=== PATIENT | male | born 1955 | race Caucasian/White ===

== ENCOUNTER 2021-02-07 07:25 | Day surgery (SDC) | payer MEDICARE ==
[~2021-02-07] VITALS: Ht 175.3 cm; Wt 57.3 kg
[2021-02-07] MEDS ORDERED: ASPIRIN 32325 MG/TAB PO (08:22)
[2021-02-07] MEDS ORDERED: [UNRECOGNIZED DRUG - OTHER] PO (08:23)
[2021-02-07] MEDS ORDERED: [UNRECOGNIZED DRUG - REMARK] PO (08:23)
[2021-02-07] MEDS ORDERED: PRIL40 PO (08:24)
[2021-02-07] MEDS ORDERED: SPIRIVA RE2.5 MCG/Ac IH (08:25)
[2021-02-07 08:41] VITALS: BP 124/59; PULSE 69; TEMP 98.5
[2021-02-07 09:38] VITALS: BP 137/77; PULSE 68; TEMP 97.6
[2021-02-07 10:00] VITALS: BP 131/74; PULSE 66
--- NOTE | 2021-02-07 10:05 | NUR ---
0935 Pt arrives back in [facility] [place] [facility] following endo procedure. Pt alert and oriented. Monitors on and alarms set. Call light within reach. Son present in room. Pt refuses food or drink mainly due to his existing condition which makes it very difficult to swallow anything. Pt has no complaints and is very ready to get out of the hospital to go smoke a cigarette. 0953 Pt continues to have no complaints. Discharge instructions reviewed with pt and son. All questions answered to their satisfaction. 1005 Pt transferred out of hospital via wheelchair and this RN with son accompanying to private vehicle driven by son.
== END 2021-02-07 10:05 | disposition home or self-care (01) ==
LOC: SDCO 07:25
DX: C15.9 Malignant neoplasm of esophagus, unspecified (principal); K21.9 Gastro-esophageal reflux disease without esophagitis; G89.29 Other chronic pain; M54.9 Dorsalgia, unspecified; M54.2 Cervicalgia; J43.9 Emphysema, unspecified; F17.210 Nicotine dependence, cigarettes, uncomplicated; Z79.82 Long term (current) use of aspirin; Z20.822 Contact with and (suspected) exposure to COVID-19; Z79.899 Other long term (current) drug therapy
CPT/HCPCS: J2704; J7120

== ENCOUNTER 2021-07-28 09:19 | Day surgery (SDC) | payer MEDICARE ==
[~2021-07-28] VITALS: Ht 175.3 cm; Wt 56.5 kg
[~2021-07-28 09:19] MED LIST: ASPIRIN 32325 MG/TAB PO; PRIL40 PO; SPIRIVA RE2.5 MCG/Ac IH; [UNRECOGNIZED DRUG - OTHER] PO; [UNRECOGNIZED DRUG - REMARK] PO
[2021-07-28 10:05] VITALS: BP 144/78; PULSE 87; TEMP 97.7
[2021-07-28] MEDS ORDERED: VITAMIN C500 MG PO (10:26)
[2021-07-28 11:30] VITALS: BP 123/74; PULSE 91; TEMP 97.3
[2021-07-28 11:45] VITALS: BP 133/81; PULSE 76
[2021-07-28 12:00] VITALS: BP 141/77; PULSE 72
--- NOTE | 2021-07-28 12:05 | NUR ---
1130- Pt returns from endo procedure via cart to [place] [facility]. Pt ambulates from cart to recliner with RN assist. Monitors on and alarms set. Call light within reach. Pt alert and oriented. Pt requests water, on clear liquid diet for [address] Vargas . Pt denies any pain or nausea. 1145- Pt taking drink well. No complications noted. 1200-Dr in to speak with patient. Discharge instructions given to pt. All questions answered to pt and family member satisfaction. Handed to pt education material and discharge information. 1205- Pt transferred out of the hospital via wheelchair, to private vehicle driven by family member.
== END 2021-07-28 12:05 | disposition home or self-care (01) ==
LOC: SDCO 09:19
DX: K22.2 Esophageal obstruction (principal); C15.9 Malignant neoplasm of esophagus, unspecified; J43.9 Emphysema, unspecified; M19.90 Unspecified osteoarthritis, unspecified site; F17.210 Nicotine dependence, cigarettes, uncomplicated; K21.9 Gastro-esophageal reflux disease without esophagitis; Z92.3 Personal history of irradiation; Z79.82 Long term (current) use of aspirin; Z79.899 Other long term (current) drug therapy; Z92.21 Personal history of antineoplastic chemotherapy
CPT/HCPCS: C1726; J2704; J7030

== ENCOUNTER 2021-09-08 09:46 | Day surgery (SDC) | payer MEDICARE ==
[~2021-09-08] VITALS: Ht 175.3 cm; Wt 59.1 kg
[~2021-09-08 09:46] MED LIST changes: +VITAMIN C500 MG PO
[2021-09-08 10:02] VITALS: BP 138/75; PULSE 71; TEMP 97.9
[2021-09-08] MEDS ORDERED: ZYRTEC 10MG10 MG PO (10:10)
[2021-09-08 11:35] VITALS: BP 118/84; PULSE 78; TEMP 97.2
--- NOTE | 2021-09-08 11:35 | NUR ---
1135- PATIENT JEROME BACK TO ENDO ROOM 3 VIA CART. AMBULATED TO CHAIR WITHOUT DIFFICULTY. IV INFUSING WITHOUT DIFFICULTY. SON AT BEDSIDE TO DRIVE PATIENT HOME. PLACED ON MONITORS, VITAL SIGNS STABLE. HOANG RN AT BEDSIDE FOR REPORT. PATIENT STATES HE DOES NOT WANT A DRINK OR FOOD. STATES HE DOES NOT WANT TO STAY ANY LONGER. ENCOURAGED TO STAY TO SPEAK WITH MD. CALL LOVELL WITHIN REACH, WARM BLANEKT PROVIDED. WILL MONITOR. 1150- VITAL SIGNS STABLE. IV REMOVED. PATIENT TO GET DRESSED AT THIS TIME. WAITING TO SPEAK WITH MD.
[2021-09-08 11:50] VITALS: BP 125/71; PULSE 70
[2021-09-08 12:05] VITALS: BP 140/72; PULSE 67
--- NOTE | 2021-09-08 12:15 | NUR ---
DISCHARGE INSTRUCTIONS REVIEWED WITH PATIENT AND SON. DR. LEIJA AT BEDSIDE TO EXPLAIN RESULTS. PATIENT READY TO GO HOME. ANGIE MCDUFFIE TO BRING PATIENT DOWN TO LOBBY VIA WHEEL CHAIR. SON NIKKI TO DRIVE PATIENT HOME. ALL BELONGINGS IN HAND.
== END 2021-09-08 12:15 | disposition home or self-care (01) ==
LOC: SDCO 09:46
DX: K22.2 Esophageal obstruction (principal); J44.9 Chronic obstructive pulmonary disease, unspecified; M19.90 Unspecified osteoarthritis, unspecified site; G89.29 Other chronic pain; M54.9 Dorsalgia, unspecified; F17.210 Nicotine dependence, cigarettes, uncomplicated; Z85.01 Personal history of malignant neoplasm of esophagus; Z79.82 Long term (current) use of aspirin
CPT/HCPCS: C1726; J2704; J7030

== ENCOUNTER 2022-02-09 13:50 | Day surgery (SDC) | payer MEDICARE ==
[~2022-02-09] VITALS: Ht 175.3 cm; Wt 57.4 kg
[~2022-02-09 13:50] MED LIST changes: +ZYRTEC 10MG10 MG PO
[2022-02-09 14:27] VITALS: BP 134/84; PULSE 87; TEMP 97.8
[2022-02-09] MEDS ORDERED: TYLENOL 500MG500 MG PO (14:45)
[2022-02-09] MEDS ORDERED: PROTONIX 40MG T40 MG PO (14:46)
--- NOTE | 2022-02-09 15:15 | NUR ---
Pt arrived from procedure, drowsy but oriented. Pt was assisted from cart to chair with minimal difficulty. Monitors applied and VSS. Verbal room report obtained. Pt provided water without ice and crackers. Call mancuso is within reach. Visitor present.
[2022-02-09 15:30] VITALS: BP 131/81; PULSE 79
--- NOTE | 2022-02-09 15:30 | NUR ---
VSS. Pt expressed desire to be discharged. Pt is tolerating water and crackers, denies nausea. No vomiting. Call mancuso remains within reach.
[2022-02-09 15:45] VITALS: BP 135/83; PULSE 78
--- NOTE | 2022-02-09 15:45 | NUR ---
VSS. IV discontinued catheter tip intact. No redness or swelling noted. Pressure dressing applied. DC instructions and educational material reviewed with the pt, who verbalized understanding and signed the related paperwork. Pt denied needing help changing into personal clothes. Pt then dismissed from endo via wheelchair to pt entrence and was transferred into the care of his son, who is present to drive private car.
== END 2022-02-09 16:00 | disposition home or self-care (01) ==
LOC: SDCO 13:50
DX: K22.2 Esophageal obstruction (principal); F17.210 Nicotine dependence, cigarettes, uncomplicated
CPT/HCPCS: C1726; J2704; J3301; J7030

== ENCOUNTER → 2022-03-23 | Day surgery (SDC) | payer MEDICARE ==
[~2022-03-23] VITALS: Ht 175.3 cm; Wt 56.2 kg
[~2022-03-23] MED LIST changes: +PROTONIX 40MG T40 MG PO; +TYLENOL 500MG500 MG PO
[2022-03-23 13:14] VITALS: BP 129/84; PULSE 71; TEMP 97.7
[2022-03-23 15:05] VITALS: BP 131/83; PULSE 63; TEMP 97.7
[2022-03-23 15:20] VITALS: BP 116/83; PULSE 63
--- NOTE | 2022-03-23 15:21 | NUR ---
1505 - PT arrives from procedure, drowsy but oriented. PT assisted with ambulating from cart to chair 2:1. Monitors applied and VSS. Warm blankets applied. Verbal room report obtained from Marybeth MCDUFFIE; per report: PT on clear liquid diet for today, to transition to soft diet as tolerated tomorrow. Water without ice provided per request. PT oriented to room and call mancuso, within reach. PT denies nausea and pain. Visitor is present. 1520 - VSS. Call mancuso remains within reach. PT expressed desire to be discharged. PT continues to drink is water.
== END ==
LOC: SDCO 11:41
DX: K22.2 Esophageal obstruction (principal); F17.210 Nicotine dependence, cigarettes, uncomplicated
CPT/HCPCS: C1726; J2704; J3301; J7030

== ENCOUNTER 2022-06-01 09:20 | Day surgery (SDC) | payer MEDICARE ==
[~2022-06-01] VITALS: Ht 175.3 cm; Wt 57.6 kg
[2022-06-01 10:05] VITALS: BP 139/84; PULSE 69; TEMP 97.4
[2022-06-01 11:25] VITALS: BP 100/78; PULSE 83; TEMP 97.9
[2022-06-01 11:40] VITALS: BP 97/82; PULSE 86
[2022-06-01 11:55] VITALS: BP 107/78; PULSE 73
== END 2022-06-01 12:05 | disposition home or self-care (01) ==
LOC: SDCO 09:20
DX: K22.2 Esophageal obstruction (principal); F17.210 Nicotine dependence, cigarettes, uncomplicated; K21.9 Gastro-esophageal reflux disease without esophagitis; Z28.311 Partially vaccinated for COVID-19; Z85.01 Personal history of malignant neoplasm of esophagus
CPT/HCPCS: C1726; J2704; J3301; J7030

== ENCOUNTER 2022-11-08 12:23 | Day surgery (SDC) | payer MEDICARE ==
[~2022-11-08] VITALS: Ht 175.3 cm; Wt 62.3 kg
[2022-11-08 13:08] VITALS: BP 161/94; PULSE 100; TEMP 97.3
[2022-11-08 14:25] VITALS: BP 155/84; PULSE 82; TEMP 97.3
[2022-11-08 14:40] VITALS: BP 127/96; PULSE 78
[2022-11-08 14:50] VITALS: BP 123/90; PULSE 78
--- NOTE | 2022-11-08 14:55 | NUR ---
1425 RETURNS TO ROOM 7 PER CART. AWAKE, ALERT. RESP UNLABORED/ AMBULATES TO RECLINER WITH STANDBY ASSIST. DENIES NAUSEA, ABD/CHEST PAIN OR DYSPHAGIA. VITAL SIGNS OBTAINED. CALL LIGHT AT SIDE. FRIEND IN ROOM 1440 TOLERATES WATER WITHOUT NAUSEA. SWALLOWS WITHOUT DIFFICULTY 1445 DISCHARGE INSTRUCTIONS REVIEWED. PATIENT VERBALIZES UNDERSTANDING. COPY PROVIDED IN DISCHARGE FOLDER
== END 2022-11-08 14:55 | disposition home or self-care (01) ==
LOC: SDCO 12:23
DX: K22.2 Esophageal obstruction (principal); F17.210 Nicotine dependence, cigarettes, uncomplicated; Z85.01 Personal history of malignant neoplasm of esophagus
CPT/HCPCS: C1726; J2704; J3301; J7120

== ENCOUNTER 2022-11-22 13:05 | Day surgery (SDC) | payer MEDICARE ==
[~2022-11-22] VITALS: Ht 175.3 cm; Wt 62.6 kg
[2022-11-22 14:50] VITALS: BP 125/78; PULSE 93; TEMP 98
--- NOTE | 2022-11-22 15:10 | NUR ---
1450-PT TO BAY 5 PER CART FROM ENDO PROCEDURE ROOM. REPORT RECEIVED. VS OBTAINED. PT DENIES ANY NEEDS AT THIS TIME. CALL LIGHT WITHIN REACH. 1455-IV DC'D AT THIS TIME. PT DRESSED HIMSELF WITHOUT ANY ASSISTANCE. 1500-DISCHARGE EDUCATION COMPLETED WITH PT AND HIS SON. VERBALIZED UNDERSTANDING OF HOME AND FOLLOW UP CARE. ALL QUESTIONS ANSWERED. DISCHARGE PAPERWORK GIVEN TO PT. 1503-DR LEIJA AT BEDSIDE DISCUSSING FINDINGS WITH PT. 1510-PT OFF UNIT PER WHEELCHAIR. PT DISCHARGED TO HOME WITH SON PER PERSONAL VEHICLE.
[2022-11-22 16:17] VITALS: BP 152/96; PULSE 105; TEMP 98
== END 2022-11-22 15:10 | disposition home or self-care (01) ==
LOC: SDCO 13:05
DX: K22.2 Esophageal obstruction (principal); F17.210 Nicotine dependence, cigarettes, uncomplicated; Z85.01 Personal history of malignant neoplasm of esophagus
CPT/HCPCS: C1726; J2704; J7120

== ENCOUNTER 2023-01-17 13:25 | Day surgery (SDC) | payer MEDICARE ==
[~2023-01-17] VITALS: Ht 175.3 cm; Wt 60.8 kg
[~2023-01-17 13:25] MED LIST changes: +CETRA VITE SENI1 TAB PO; +PRILOSEC 20MG20 MG PO; +TIROSINT50 MC1 PO; +ZYRTEC ALLERGY10 MG PO
[2023-01-17 14:10] VITALS: BP 167/96; PULSE 80; TEMP 96.7
[2023-01-17 15:20] VITALS: BP 134/75; PULSE 80; TEMP 97
--- NOTE | 2023-01-17 15:35 | NUR ---
1520-PT TO BAY 4 PER CART FROM PROCEDURE ROOM. PT AMBULATED TO CHAIR WITH ASSISTANCE. REPORT RECEIVED. CALL LIGHT WITHIN REACH. PT DENIES ANY NEEDS AT THIS TIME. PT REFUSED ANYTHING TO EAT OR DRINK. 1525-DC IV'D AT THIS TIME. 1530-DR LEIJA IN ROOM SPEAKING WITH PT. 1532-DISCHARGE EDUCATION COMPLETED WITH PT. VERBALIZED UNDERSTANDING OF HOME AND FOLLOW UP CARE. ALL QUESTIONS ANSWERED. DISCHARGE PAPERWORK GIVEN TO PT. 1535-PT OFF UNIT PER WHEELCHAIR. PT DISCHARGED TO HOME WITH FAMILY PER PERSONAL VEHICLE.
== END 2023-01-17 15:35 | disposition home or self-care (01) ==
LOC: SDCO 13:25
DX: K22.2 Esophageal obstruction (principal); C15.9 Malignant neoplasm of esophagus, unspecified; F17.210 Nicotine dependence, cigarettes, uncomplicated
CPT/HCPCS: C1726; J2704; J7120

== ENCOUNTER 2023-07-11 12:40 | Day surgery (SDC) | payer MEDICARE ==
[~2023-07-11] VITALS: Ht 175.3 cm; Wt 59.8 kg
[2023-07-11 14:17] VITALS: BP 111/67; PULSE 91; TEMP 97.4
[2023-07-11 14:24] VITALS: BP 147/93; PULSE 71; TEMP 97.7
--- NOTE | 2023-07-11 14:34 | NUR ---
1312 PT AMBULATORY TO BAY 4 WITH STEADY GAIT, BREATHING EVEN AND UNLABORED. PT IS ALERT AND ORIENTED, ACCOMPANIED TODAY BY HIS SON. CONSENT REVIEWED AND SIGNED BY PATIENT. IV ESTABLISHED. CALL LIGHT IN REACH. DECLINED WARM BLANKET.
--- NOTE | 2023-07-11 14:35 | NUR ---
1417-PT ARRIVED VIA CART TO ENDO BAY 4, AMBULATED TO RECLINER WITH SBA. VITAL SIGNS TAKEN, VSS. PT DENIES NAUSEA, REPORTS MILD DISCOMFORT TO THROAT. REPORT OBTAINED FROM RETA CHESTER. UPDATE GIVEN TO PT AND SON AT BEDSIDE. PT REFUSES PO INTAKE AT THIS TIME 1425-DISCHARGE INSTRUCTIONS REVIEWED WITH PT AND SON, QUESTIONS INVITED. IV CATHETER DISCONTINUED, TIP INTACT. PRESSURE HELD AND BANDAGE APPLIED. 1430-PT DISCHARGED HOME TO POV VIA WHEELCHAIR, ALL BELONGS AND DISCHARGE INSTRUCTIONS SENT WITH PT
== END 2023-07-11 14:30 | disposition home or self-care (01) ==
LOC: SDCO 12:40
DX: K22.2 Esophageal obstruction (principal); F17.210 Nicotine dependence, cigarettes, uncomplicated
CPT/HCPCS: C1726; J2704; J7120

== ENCOUNTER 2023-10-03 12:40 | Day surgery (SDC) | payer MEDICARE ==
[~2023-10-03] VITALS: Ht 175.3 cm; Wt 61.1 kg
[2023-10-03] MEDS ORDERED: SYNTHROID0.075 MG/T PO (12:55)
[2023-10-03] MEDS ORDERED: TYLENOL 325MG325 MG PO (12:56)
[2023-10-03 13:37] VITALS: BP 160/104; PULSE 97; TEMP 98.3
--- NOTE | 2023-10-03 13:42 | NUR ---
1247 Pt ambulatory to bay 5 with steady gait, breathing even and unlabored. Pt is alert and oriented. Consents reviewed and signed by pt. IV established. LR infusing via gravity at KVO. Call light in reach. Pt refused gown and insisted on keeping his own shirt on for the procedure.
[2023-10-03 13:50] VITALS: BP 108/44; PULSE 88; TEMP 98.1
[2023-10-03 14:00] VITALS: BP 130/87; PULSE 88
--- NOTE | 2023-10-03 14:05 | NUR ---
1350 RETURNS TO ROOM 5 PER CART AWAKE, ALERT. RESP UNLABORED. AMBULATES TO RECLINER WITH STANDBY ASSIST. DENIES PAIN, NAUSEA OR DYSPHAGIA. VITAL SIGNS OBTAINED 1355 REFUSES PO FLUID. DISCHARGE INSTRUCTIONS REVIEWED. PATIENT VERBALIZES UNDERSTANDING. COPY PROVIDED IN DISCHARGE FOLDER. 1400 AWAKE, ALERT. EXPRESSES DESIRE TO BE DISCHARGED.
== END 2023-10-03 14:05 | disposition home or self-care (01) ==
LOC: SDCO 12:40
DX: K22.2 Esophageal obstruction (principal); F17.210 Nicotine dependence, cigarettes, uncomplicated; Z85.01 Personal history of malignant neoplasm of esophagus
CPT/HCPCS: C1726; J2704; J7120

== ENCOUNTER 2024-05-07 12:45 | Day surgery (SDC) | payer MEDICARE ==
[~2024-05-07] VITALS: Ht 180.3 cm; Wt 57.7 kg
[~2024-05-07 12:45] MED LIST changes: +LR 1,000 ML IV SCH; +Ondansetron 4 MG/2 ML VIAL IV PRN; +PREDNISONE10 MG PO; +SYNTHROID0.075 MG/T PO; +TYLENOL 325MG325 MG PO
[2024-05-07] MEDS ORDERED: Lidocaine PF 2% (20 MG/ML) 5 ML VIAL ONE (13:22)
[2024-05-07 13:44] VITALS: BP 130/79; PULSE 79; TEMP 98.1
[2024-05-07 14:00] VITALS: BP 111/80; PULSE 84; TEMP 98
[2024-05-07 14:03] VITALS: BP 90/52; PULSE 80
--- NOTE | 2024-05-07 14:15 | NUR ---
1400 RETURNS TO ROOM 3 PER CART. AWAKE, ALERT. RESP UNLABORED. AMBULATES TO RECLINER WITH STANDBY ASSIST. DENIES PAIN OR DYSPHAGIA. VITAL SIGNS OBTAINED. SON HERE. PATIENT VERBALIZES DESIRE FOR DISCHARGE 1405 REFUSES PO FLUID. DISCHARGE INSTRUCTIONS REVIEWED. PATIENT VERBALIZES UNDERSTANDING. COPY PLACED IN DISCHARGE FOLDER 1410 SITS IN WHEELCHAIR
== END 2024-05-07 14:15 | disposition home or self-care (01) ==
LOC: SDCO 12:45
DX: K22.2 Esophageal obstruction (principal); F17.210 Nicotine dependence, cigarettes, uncomplicated; K21.9 Gastro-esophageal reflux disease without esophagitis; E03.9 Hypothyroidism, unspecified; Z79.899 Other long term (current) drug therapy
CPT/HCPCS: C1726; J2704